=== PATIENT | male | born 1945 | race Caucasian/White ===

== ENCOUNTER 2024-03-12 20:36 | Emergency (ER) | payer MEDICARE, MEDICAID ==
[2024-03-12 21:00] VITALS: BP 139/77; PULSE 86
== END 2024-03-12 22:05 | disposition home or self-care (01) ==
LOC: MERGE 20:36 → VM.ED 20:36
DX: S01.21XA Laceration without foreign body of nose, initial encounter (principal); S10.93XA Contusion of unspecified part of neck, initial encounter; W01.0XXA Fall on same level from slipping, tripping and stumbling without subsequent striking against object, initial encounter; Y93.01 Activity, walking, marching and hiking
CPT/HCPCS: 70450; 70486; 73130-LT; 99284